=== PATIENT | male | born 1970 ===

== ENCOUNTER → 2021-08-14 | Outpatient (REF) | payer OTHER | LOC: M LAB REF 16:09 | PROVIDERS: ATTEND Nurse Practitioner Family | DX: E11.9 Type 2 diabetes mellitus without complications (principal); E08.42 Diabetes mellitus due to underlying condition with diabetic polyneuropathy ==

== ENCOUNTER → 2024-04-19 | Outpatient (REF) | payer OTHER ==
[2024-04-19 18:16] LABS: TOTAL PROTEIN,RANDOM URINE 100.4 MG/DL (0.0-14.0)
[2024-04-19 18:20] LABS: CREATININE,RANDOM URINE 74.7 MG/DL
== END ==
LOC: M LAB REF 17:02
PROVIDERS: ATTEND Internal Medicine Nephrology
DX: E11.21 Type 2 diabetes mellitus with diabetic nephropathy (principal)

== ENCOUNTER → 2025-01-27 | Outpatient (REF) | payer OTHER ==
[2025-01-27 18:22] LABS: IRON (FE) 33 UG/DL (65-175); PERCENT SATURATION 12.5 % (19.7-50.0)
[2025-01-27 18:30] LABS: VITAMIN B12 LEVEL 1052 PG/ML (211-911)
== END ==
LOC: M LAB REF 16:50
PROVIDERS: ATTEND Internal Medicine Nephrology
DX: Z79.899 Other long term (current) drug therapy (principal); N18.9 Chronic kidney disease, unspecified; D63.1 Anemia in chronic kidney disease